=== PATIENT | male | born 1985 | race Caucasian/White ===

== ENCOUNTER 2017-05-23 10:53 | Emergency (ER) | payer OTHER ==
[2017-05-23] MEDS ORDERED: KETOROLAC 30 MG/ML 1 ML VIAL IVP STA (11:37)
[2017-05-23] MEDS ORDERED: MORPHINE SULFATE 4 MG/ML SYRINGE IVP STA (11:37)
--- NOTE | 2017-05-23 11:47 | ED ---
General Adult HPI - General Chief complaint: Extremity Problem,Nontraumatic Stated complaint: Back Pain Source: patient Mode of arrival: ambulatory Limitations: no limitations - History of Present Illness Initial comments: 32-year-old male without past medical history presented for evaluation of left-sided neck pain with radiation down to his scapula. He states that he has been having this pain since October after fall but hasn't followed up with a neurologist. His primary care physician given Flexeril which had improved his pain but he has since run out of his medications. He states that there is no worsening pain with movement of his upper extremities however with left sidebending and left-sided rotation he gets acute pain that goes from the base of the skull down the neck to the left shoulder and upper back. Pain started to acutely worsening yesterday and was unbearable today. He has not had any previous imaging to the area. He denies any changes in vision, ataxia, lightheadedness/dizziness, dysarthria, chest pain, shortness of breath, upper or lower extremity weakness. - Related Data Home Medications Medication Instructions Recorded Confirmed Albuterol Sulfate [Proair Hfa] 2 puff INHALATION RT-Q6H PRN 05/23/17 05/23/17 Cyclobenzaprine [Flexeril] 10 mg PO TID PRN 05/23/17 05/23/17 Dulera (Unknown Dose) 2 puff INHALATION RT-BID 05/23/17 05/23/17 Ibuprofen [Motrin] 800 mg PO TID PRN 05/23/17 05/23/17 Previous Rx's Medication Instructions Recorded Acetaminophen-Codeine 300-30mg 1 tab PO Q6H #12 tablet 05/23/17 [Tylenol #3] Diazepam [Valium] 5 mg PO BID #6 tab 05/23/17 Allergies Allergy/AdvReac Type Severity Reaction Status Date / Time No Known Allergies Allergy Verified 05/23/17 11:13 Review of Systems ROS Statement: Those systems with pertinent positive or pertinent negative responses have been documented in the HPI. ROS Other: All systems not noted in ROS Statement are negative. Constitutional: Denies: fever, chills Eyes: Denies: eye pain, vision change ENT: Denies: ear pain, hearing loss, congestion Respiratory: Denies: cough, dyspnea Cardiovascular: Denies: chest pain, syncope Endocrine: Denies: fatigue, polydipsia, polyuria Gastrointestinal: Denies: abdominal pain, nausea, vomiting Genitourinary: Denies: urgency, dysuria Musculoskeletal: Denies: back pain, arthralgia, myalgia Skin: Denies: rash, lesions Neurological: Reports: other (shooting pain from the left base of skull down neck to upper left back). Denies: headache, weakness Psychiatric: Denies: anxiety, depression Hematological/Lymphatic: Denies: easy bleeding, easy bruising Past Medical History Past Medical History: Asthma History of Any Multi-Drug Resistant Organisms: None Reported Past Surgical History: Orthopedic Surgery Additional Past Surgical History / Comment(s): knee Past Psychological History: Anxiety Smoking Status: Never smoker Past Alcohol Use History: Occasional Past Drug Use History: None Reported General Exam Limitations: no limitations General appearance: alert, in distress, other (intermittent wincing with movements) Eye exam: Present: normal appearance, PERRL, EOMI. Absent: scleral icterus, conjunctival injection, periorbital swelling ENT exam: Present: normal exam, mucous membranes moist Neck exam: Present: other (decreased ROM). Absent: tenderness, full ROM Respiratory exam: Present: normal lung sounds bilaterally. Absent: respiratory distress, wheezes, rales, rhonchi, stridor Cardiovascular Exam: Present: regular rate, normal rhythm, normal heart sounds. Absent: systolic murmur, diastolic murmur, rubs, gallop, clicks GI/Abdominal exam: Present: soft, normal bowel sounds. Absent: distended, tenderness, guarding, rebound, rigid Rectal exam: Present: deferred Extremities exam: Present: normal inspection, full ROM, normal capillary refill. Absent: tenderness, pedal edema, joint swelling, calf tenderness Back exam: Present: normal inspection Neurological exam: Present: alert, oriented X3, CN II-XII intact, other ( positive spurlings test on the left) Psychiatric exam: Present: normal affect, normal mood Skin exam: Present: warm, dry, intact, normal color. Absent: rash Course Vital Signs 05/23/17 05/23/17 10:58 13:16 Temperature 97.3 F L 98.1 F Pulse Rate 93 73 Respiratory 18 16 Rate Blood Pressure 131/103 137/85 O2 Sat by Pulse 98 98 Oximetry Medical Decision Making - Medical Decision Making 32-year-old male presenting for evaluation of left-sided neck pain with radiation of left upper back. On physical examination he has a positive Spurling's test. CT cervical spine shows no acute fracture dislocation however there is a small posterior disc osteophyte complex at C5 and C6. Evaluation for disc herniation is limited with computed tomography scan and MRI is recommended. On repeat evaluation the patient had improvement in his symptoms. He was informed of results and that he be discharged with instructions to follow-up with his primary care physician as well as neuro/ortho. He was given return instructions. The patient acknowledged an understanding of this information and agreed with this plan of care. Disposition Clinical Impression: Cervical radiculopathy Disposition: HOME SELF-CARE Condition: Stable Instructions: Cervical Radiculopathy (ED), Neck Pain (ED), Acute Neck Pain (ED) Additional Instructions: Please use medication as discussed. Please follow up with family doctor if symptoms have not improved over the next two days. Please return to the emergency room if your symptoms increase or worsen or for any other concerns. Prescriptions: Acetaminophen-Codeine 300-30mg [Tylenol #3] 1 tab PO Q6H #12 tablet Diazepam [Valium] 5 mg PO BID #6 tab Referrals: Trent Price MD [Primary Care Provider] - 1-2 days Ana Roger MD [STAFF PHYSICIAN] - 1-2 days Time of Disposition: 13:09
--- NOTE | 2017-05-23 12:14 | CT ---
EXAMINATION TYPE: CT cervical spine wo con DATE OF EXAM: 05/23/2017 COMPARISON: NONE HISTORY: pain following fall [address] DLP: 838 mGycm. Automated Exposure Control for Dose Reduction was Utilized. TECHNIQUE: CT scan of the cervical spine is obtained without contrast, axial images are obtained, sa gittal and coronal reformatted images are also reviewed. FINDINGS: Cervical spine is visualized in its entirety from C1 through upper thoracic levels, demonst rates satisfactory alignment without evidence of acute fracture or dislocation. Prevertebral soft ti ssue appears within normal limits. The C1-C2 articulation is within normal limits on the coronal luis angel ges. Small posterior disc osteophyte complexes seen at C5-C6. There is straightening of the usual cer vical lordosis, which may be related to muscular strain or patient positioning. Motion artifact is se en in the inferior images. There is limited evaluation for disc herniation on CT. Review of axial images shows no significant spinal canal stenosis. Thyroid gland is normal limits. Vi sualized lung apices are clear. IMPRESSION: There is no acute fracture or dislocation evident in the cervical spine. Small posterior disc osteophyte complex at C5-C6. Evaluation for disc herniation is limited.
[2017-05-23 13:16] VITALS: BP 137/85; PULSE 73; RESP 16; TEMP 98.1
== END 2017-05-23 13:20 | disposition home or self-care (01) ==
LOC: EC 10:53
DX: M54.12 Radiculopathy, cervical region (principal); M54.6 Pain in thoracic spine; J45.909 Unspecified asthma, uncomplicated; Z79.51 Long term (current) use of inhaled steroids
CPT/HCPCS: 72125; 99284; 96374; 96375; J2270; J1885

== ENCOUNTER 2020-03-02 06:21 | Inpatient (IN) | payer OTHER ==
[2020-03-02] MEDS ORDERED: ASPIRIN 81 MG PO STA (06:34)
[2020-03-02] MEDS ORDERED: SODIUM CHLORIDE 0.9% 500 ML 500 ML IV STA (06:34)
[2020-03-02] MEDS ORDERED: DILTIAZEM DRIP BOLUS FROM BAG 1 MG SOLN IV ONE (06:35)
[2020-03-02] MEDS: DILTIAZEM 125 MG in SODIUM CHLORIDE 0.9% 100 ML IV SCH (06:41)
[2020-03-02 06:51] LABS: Basophils % (A) 0 %; Eosinophils # (A) 0.1 k/uL (0-0.7); Eosinophils % (A) 2 %; HCT 47.2 % (39.0-53.0); HGB 15.5 gm/dL (13.0-17.5); Lymphocytes # (A) 1.5 k/uL (1.0-4.8); Lymphocytes % (A) 23 %; MCH 31.4 pg (25.0-35.0); MCHC 32.8 g/dL (31.0-37.0); MCV 95.9 fL (80.0-100.0); Mean Platelet Volume 7.2; Monocytes # (A) 0.9 k/uL (0-1.0); Monocytes % (A) 14 %; Neutrophils # (A) 3.7 k/uL (1.3-7.7); Neutrophils % (A) 57 %; Platelet Count 372 k/uL (150-450); RBC 4.92 m/uL (4.30-5.90); RDW 12.6 % (11.5-15.5); WBC 6.4 k/uL (3.8-10.6)
[2020-03-02 06:59] LABS: ALT 92 U/L (4-49); AST 77 U/L (17-59); African American GFR (CKD) >90 (>60 ml/min/1.73 sqM); Alkaline Phosphatase 89 U/L (38-126); Anion Gap 15 mmol/L; Blood Urea Nitrogen 10 mg/dL (9-20); Calcium 10.1 mg/dL (8.4-10.2); Carbon Dioxide 20 mmol/L (22-30); Chloride 99 mmol/L (98-107); Glucose 118 mg/dL (74-99); Magnesium 1.8 mg/dL (1.6-2.3); Non-African American GFR(CKD) >90 (>60 ml/min/1.73 sqM); Potassium 3.7 mmol/L (3.5-5.1); Sodium 134 mmol/L (137-145); Total Bilirubin 2.2 mg/dL (0.2-1.3)
--- NOTE | 2020-03-02 07:00 | ED ---
Arrhythmia/Palpitations HPI - General Chief Complaint: Arrhythmia/Palpitations Stated Complaint: cardiac issues Time Seen by Provider: 03/02/20 06:30 Source: patient, RN notes reviewed Mode of arrival: ambulatory Limitations: no limitations - History of Present Illness Initial Comments: This a 34-year-old male presents emergency Department chief complaint palpitations, A. fib. Patient does have a history of A. fib states she's not had a problem in several years does not take any current medications. Patient states he is to be on Rythmol. Patient states that he just feels that his heart is racing no exact chest pain. He's had minimal shortness of breath and slight dizziness. Denies any fever, chills, URI symptoms, nausea vomiting. Patient s tates that he uses see [facility]. - Related Data Home Medications Medication Instructions Recorded Confirmed Albuterol Sulfate [Proair Hfa] 2 puff INHALATION RT-Q6H PRN 05/23/17 05/23/17 Cyclobenzaprine [Flexeril] 10 mg PO TID PRN 05/23/17 05/23/17 Dulera (Unknown Dose) 2 puff INHALATION RT-BID 05/23/17 05/23/17 Ibuprofen [Motrin] 800 mg PO TID PRN 05/23/17 05/23/17 Previous Rx's Medication Instructions Recorded Acetaminophen-Codeine 300-30mg 1 tab PO Q6H #12 tablet 05/23/17 [Tylenol #3] Diazepam [Valium] 5 mg PO BID #6 tab 05/23/17 Allergies Allergy/AdvReac Type Severity Reaction Status Date / Time No Known Allergies Allergy Verified 03/02/20 06:27 Review of Systems ROS Statement: Those systems with pertinent positive or pertinent negative responses have been documented in the HPI. ROS Other: All systems not noted in ROS Statement are negative. Past Medical History Past Medical History: Atrial Fibrillation, Asthma History of Any Multi-Drug Resistant Organisms: None Reported Past Surgical History: Orthopedic Surgery Additional Past Surgical History / Comment(s): knee Past Psychological History: Anxiety Smoking Status: Never smoker Past Alcohol Use History: Occasional Past Drug Use History: None Reported General Exam Limitations: no limitations General appearance: alert, in no apparent distress Head exam: Present: atraumatic, normocephalic, normal inspection Eye exam: Present: normal appearance, PERRL, EOMI. Absent: scleral icterus, conjunctival injection, periorbital swelling ENT exam: Present: normal exam, normal oropharynx, mucous membranes moist Neck exam: Present: normal inspection, full ROM. Absent: tenderness, meningismus, lymphadenopathy Respiratory exam: Present: normal lung sounds bilaterally. Absent: respiratory distress, wheezes, rales, rhonchi, stridor Cardiovascular Exam: Present: tachycardia, irregular rhythm, normal heart sounds. Absent: regular rate, normal rhythm, systolic murmur, diastolic murmur, rubs, gallop, clicks GI/Abdominal exam: Present: soft, normal bowel sounds. Absent: distended, tenderness, guarding, rebound, rigid Extremities exam: Absent: pedal edema Neurological exam: Present: alert, oriented X3, CN II-XII intact Skin exam: Present: warm, dry, intact, normal color. 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 fib with RVR rate of 151 QRS 86 QT/QTC 304/481 Medical Decision Making - Medical Decision Making Patient will be admitted for A. fib RVR started on Cardizem and heparin with cardiology evaluation. - Lab Data Result diagrams: 03/02/20 06:36 03/02/20 06:36 Lab Results 03/02/20 03/02/20 03/02/20 Range/Units 06:36 06:36 06:36 WBC 6.4 (3.8-10.6) k/uL RBC 4.92 (4.30-5.90) m/uL Hgb 15.5 (13.0-17.5) gm/dL Hct 47.2 (39.0-53.0) % MCV 95.9 (80.0-100.0) fL MCH 31.4 (25.0-35.0) pg MCHC 32.8 (31.0-37.0) g/dL RDW 12.6 (11.5-15.5) % Plt Count 372 (150-450) k/uL Neutrophils % 57 % Lymphocytes % 23 % Monocytes % 14 % Eosinophils % 2 % Basophils % 0 % Neutrophils # 3.7 (1.3-7.7) k/uL Lymphocytes # 1.5 (1.0-4.8) k/uL Monocytes # 0.9 (0-1.0) k/uL Eosinophils # 0.1 (0-0.7) k/uL Basophils # 0.0 (0-0.2) k/uL PT 10.2 (9.0-12.0) sec INR 1.0 (<1.2) APTT 24.6 (22.0-30.0) sec Sodium 134 L (137-145) mmol/L Potassium 3.7 (3.5-5.1) mmol/L Chloride 99 (98-107) mmol/L Carbon Dioxide 20 L (22-30) mmol/L Anion Gap 15 mmol/L BUN 10 (9-20) mg/dL Creatinine 0.83 (0.66-1.25) mg/dL Est GFR (CKD-EPI)AfAm >90 (>60 ml/min/1.73 sqM) Est GFR (CKD-EPI)NonAf >90 (>60 ml/min/1.73 sqM) Glucose 118 H (74-99) mg/dL Calcium 10.1 (8.4-10.2) mg/dL Magnesium 1.8 (1.6-2.3) mg/dL Total Bilirubin 2.2 H (0.2-1.3) mg/dL AST 77 H (17-59) U/L ALT 92 H (4-49) U/L Alkaline Phosphatase 89 (38-126) U/L Troponin I (0.000-0.034) ng/mL Total Protein 8.0 (6.3-8.2) g/dL Albumin 5.0 (3.5-5.0) g/dL TSH 4.400 (0.465-4.680) mIU/L 03/02/20 Range/Units 06:36 WBC (3.8-10.6) k/uL RBC (4.30-5.90) m/uL Hgb (13.0-17.5) gm/dL Hct (39.0-53.0) % MCV (80.0-100.0) fL MCH (25.0-35.0) pg MCHC (31.0-37.0) g/dL RDW (11.5-15.5) % Plt Count (150-450) k/uL Neutrophils % % Lymphocytes % % Monocytes % % Eosinophils % % Basophils % % Neutrophils # (1.3-7.7) k/uL Lymphocytes # (1.0-4.8) k/uL Monocytes # (0-1.0) k/uL Eosinophils # (0-0.7) k/uL Basophils # (0-0.2) k/uL PT (9.0-12.0) sec INR (<1.2) APTT (22.0-30.0) sec Sodium (137-145) mmol/L Potassium (3.5-5.1) mmol/L Chloride (98-107) mmol/L Carbon Dioxide (22-30) mmol/L Anion Gap mmol/L BUN (9-20) mg/dL Creatinine (0.66-1.25) mg/dL Est GFR (CKD-EPI)AfAm (>60 ml/min/1.73 sqM) Est GFR (CKD-EPI)NonAf (>60 ml/min/1.73 sqM) Glucose (74-99) mg/dL Calcium (8.4-10.2) mg/dL Magnesium (1.6-2.3) mg/dL Total Bilirubin (0.2-1.3) mg/dL AST (17-59) U/L ALT (4-49) U/L Alkaline Phosphatase (38-126) U/L Troponin I <0.012 (0.000-0.034) ng/mL Total Protein (6.3-8.2) g/dL Albumin (3.5-5.0) g/dL TSH (0.465-4.680) mIU/L Critical Care Time Critical Care Time: Yes Total Critical Care Time: 35 Critical Care Time: Total 35 minutes critical care time used initially evaluated patient, reviewed all past medical history ordered labs EKG and chest x-ray. Patient was started on Cardizem bolus of 10 started at 5 mg per hour. Patient heart rate is improved at this time. Patient remains in A. fib. Case discussed with mo physician will be admitted to cardiology evaluation. Patient was started on heparin. Disposition Clinical Impression: Atrial fibrillation with RVR Disposition: ADMITTED IP TO THIS HOSP Condition: Fair Referrals: Trent Price MD [Primary Care Provider] - 1-2 days
--- NOTE | 2020-03-02 07:02 | XR ---
EXAMINATION TYPE: XR chest 2V DATE OF EXAM: 03/02/2020 COMPARISON: 03/15/2011 HISTORY: Dysrhythmia TECHNIQUE: FINDINGS: Heart and mediastinum are normal. Lungs are clear. Diaphragm is normal. There are chest shahriar ds. Bony thorax appears intact. Pulmonary vascularity is normal. IMPRESSION: Normal chest. No change.
[2020-03-02 07:27] LABS: Partial Thromboplastin Time 24.6 sec (22.0-30.0); Prothrombin Time 10.2 sec (9.0-12.0)
[2020-03-02] MEDS ORDERED: HEPARIN SODIUM,PORCINE 5,000 UNIT/ML 1 ML VIAL IV ONE (07:29)
[2020-03-02] MEDS ORDERED: HEPARIN SODIUM,PORCINE 5,000 UNIT/ML 1 ML VIAL IV PRN (07:29)
[2020-03-02] MEDS ORDERED: HEPARIN SOD,PORK IN 0.45% NACL 25,000 UNIT in 0.45% NACL 1 250ML.BAG IV SCH (07:30)
[2020-03-02] MEDS ORDERED: ACETAMINOPHEN TAB 325 MG TAB PO PRN (07:33)
[2020-03-02] MEDS ORDERED: PROPAFENONE 150 MG TAB PO STA (09:57)
--- NOTE | 2020-03-02 10:21 | P.CRDCN ---
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 Family history is significant for CAD with his father having MO in his 50s. He does have a history of drinking which he brings about 3-4 days a week usually however he's this has become more frequent and drinking earlier in the day since being for load about 8 weeks ago his last drink was February 28 which he admits to drinking about a pint of tequila. He presented to the emergency department after developing palpitations last night he did take 300 mg of Rythmol at home but this was in 2016. Palpitations persisted so he came to the emergency department. EKG on admission showed atrial fibrillation with rapid ventricular response with a ventricular rate of 151 bpm. chest x-ray on admission showed normal chest, no change. Labs on admission showed normal CBC, sodium 134, potassium 3.7, BUN 10 and creatinine 0.83. LFTs are elevated with AST 77, ALT 92, and total bilirubin 2.2. Patient denies history of hypertension but blood pressure has been elevated since admission. TSH is normal. He continues to be in atrial fibrillation with heart rate around 100 bpm. He continues to feel fluttering in his chest. Denies shortness of breath, chest pain, syncope or edema. He does have occasional dizziness with exertion. Past Medical History Past Medical History: Atrial Fibrillation, Asthma History of Any Multi-Drug Resistant Organisms: None Reported Past Surgical History: Orthopedic Surgery Additional Past Surgical History / Comment(s): knee Past Psychological History: Anxiety Smoking Status: Never smoker Past Alcohol Use History: Occasional Past Drug Use History: None Reported Medications and Allergies Home Medications Medication Instructions Recorded Confirmed Type Albuterol Sulfate [Proair Hfa] 2 puff INHALATION RT-Q4H PRN 05/23/17 03/02/20 History LORazepam [Ativan] 0.5 mg PO DAILY PRN 03/02/20 03/02/20 History Mometasone/Formoterol [Dulera 200 2 puff INHALATION RT-BID 03/02/20 03/02/20 History Mcg/5 Mcg Inhaler] Allergies Allergy/AdvReac Type Severity Reaction Status Date / Time No Known Allergies Allergy Verified 03/02/20 08:19 Physical Exam Vitals: Vital Signs Temp Pulse Pulse Resp BP Pulse Ox 03/02/20 08:47 861 H 6 L 126/87 98 03/02/20 08:24 86 16 116/103 99 03/02/20 08:16 102 H 16 147/118 98 03/02/20 07:48 105 H 16 148/126 100 03/02/20 07:20 106 H 16 139/111 99 03/02/20 07:04 120 H 20 143/111 98 03/02/20 06:51 110 H 20 150/107 98 03/02/20 06:33 158 H 160 H 03/02/20 06:25 98.8 F 62 18 139/108 98 Intake and Output 03/01/20 03/02/20 03/02/20 22:59 06:59 14:59 Intake Total 15.500 Balance 15.500 Intake: Intake, IV Titration 15.500 Amount Diltiazem 125 mg In 15.500 Sodium Chloride 0.9% 100 ml @ 5 MG/HR 5 mls/hr IV .Q24H [facility] Rx#:[id number] Other: Weight 83.915 kg PHYSICAL EXAMINATION: HEENT: Head is atraumatic, normocephalic. Pupils equal, round. Neck is supple. There is no elevated jugular venous pressure. HEART EXAMINATION: Heart sounds irregularly irregular, S1 and S2 normal. No murmur or gallop heard. CHEST EXAMINATION: Lungs are clear to auscultation and precussion. No chest wall tenderness is noted on palpation or with deep breathing. ABDOMEN: Soft, nontender. Bowel sounds are heard. No organomegaly noted. EXTREMITIES: 2+ peripheral pulses with no evidence of peripheral edema and no calf tenderness noted. NEUROLOGIC patient is awake, alert and oriented x3. . Results 03/02/20 06:36 03/02/20 06:36 Cardiac Enzymes 03/02/20 03/02/20 Range/Units 06:36 06:36 AST 77 H (17-59) U/L Troponin I <0.012 (0.000-0.034) ng/mL Coagulation 03/02/20 Range/Units 06:36 PT 10.2 (9.0-12.0) sec APTT 24.6 (22.0-30.0) sec CBC 03/02/20 Range/Units 06:36 WBC 6.4 (3.8-10.6) k/uL RBC 4.92 (4.30-5.90) m/uL Hgb 15.5 (13.0-17.5) gm/dL Hct 47.2 (39.0-53.0) % Plt Count 372 (150-450) k/uL Comprehensive Metabolic Panel 03/02/20 Range/Units 06:36 Sodium 134 L (137-145) mmol/L Potassium 3.7 (3.5-5.1) mmol/L Chloride 99 (98-107) mmol/L Carbon Dioxide 20 L (22-30) mmol/L BUN 10 (9-20) mg/dL Creatinine 0.83 (0.66-1.25) mg/dL Glucose 118 H (74-99) mg/dL Calcium 10.1 (8.4-10.2) mg/dL AST 77 H (17-59) U/L ALT 92 H (4-49) U/L Alkaline Phosphatase 89 (38-126) U/L Total Protein 8.0 (6.3-8.2) g/dL Albumin 5.0 (3.5-5.0) g/dL Current Medications Generic Name Dose Route Start Last Admin Trade Name Freq PRN Reason Stop Dose Admin Acetaminophen 650 mg 03/02/20 07:33 Tylenol Tab PO Q6HR PRN Mild Pain or Fever > 100.5 Apixaban 5 mg 03/02/20 10:00 Eliquis PO BID ADRIEN Diltiazem HCl 125 mg/ Sodium 125 mls @ 5 mls/hr 03/02/20 06:45 03/02/20 08:24 Chloride IV 5 mg/hr .Q24H ADRIEN 5 mls/hr Infusion 5 MG/HR Metoprolol Tartrate 25 mg 03/02/20 10:00 Lopressor PO BID ADRIEN Intake and Output 03/01/20 03/02/20 03/02/20 22:59 06:59 14:59 Intake Total 15.500 Balance 15.500 Intake: Intake, IV Titration 15.500 Amount Diltiazem 125 mg In 15.500 Sodium Chloride 0.9% 100 ml @ 5 MG/HR 5 mls/hr IV .Q24H [facility] Rx#:[id number] Other: Weight 83.915 kg 03/02/20 06:36 03/02/20 06:36 EKG Interpretations (text) Atrial fibrillation with rapid ventricular response Assessment and Plan Assessment: #1 atrial fibrillation with rapid ventricular response, paroxysmal #2 elevated blood pressure with no diagnosis of hypertension in the past #3 asthma #4 prior history of smoking #5 alcohol abuse Plan: From cardiology's perspective, we will obtain a 2-D echo with Doppler. We will stop heparin and start the patient on Eliquis. Adequate beta sunita. Give Rythmol 600 mg by mouth 1 now. I discussed with the patient the importance of alcohol cessation. Patient would benefit from stress test at a later date as an outpatient to rule out underlying ischemia. We'll continue to follow the patient by and provide further recommendations accordingly. CLINICAL OB note has been reviewed, I agree with a documented findings and plan of care. Patient was seen and examined.
[2020-03-02] MEDS: APIXABAN 5 MG TAB PO SCH ×2 (10:39→20:07)
[2020-03-02] MEDS: METOPROLOL TARTRATE 25 MG TAB PO SCH ×2 (10:39→20:07)
[2020-03-02] MEDS ORDERED: LORazepam 0.5 MG TAB PO PRN (14:00)
[2020-03-02] MEDS ORDERED: ALBUTEROL NEBULIZED 2.5 MG/3 ML INHALATION PRN (14:13)
--- NOTE | 2020-03-02 14:16 | P.HPIM ---
History of Present Illness H&P Date: 03/02/20 Chief Complaint: Palpitations 34-year-old male with a past medical history of asthma, HTN, former smoker, and A. fib presents with increased palpitations. Patient has a known history of atrial fibrillation and is on Rythmol when necessary. Patient took a dose of the Rythmol and symptoms did not improve as a result he went to the ER. Patient was found to be in A. fib with RVR. 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 Patient does admit to moderate alcohol consumption. Patient admitted to drinking 3-4 times a week. However, patient states that with these trying times he has increased his alcohol intake. Patient has been off work for 8 weeks. Patient admitted to me that his last drink was on Tuesday, however, there is some misinformation and he is stating that his last drink was on Tuesday per cardiology note. As a result patient will be placed on ciwa protocol. Patient currently denies chest pain, shortness of breath, nausea, vomiting, fevers, chills. Laboratory data did reveal sodium of 134 potassium 3.7 carbon dioxide 20 chloride 99 glucose 118 total bili 2.2 AST 77 ALT 92 troponin less than 0.012 TSH 4.4 Chest x-ray revealed no acute pathology EKG revealed A. fib with RVR as a result patient was placed on a Cardizem drip and heparin drip Vitals temperature 98.2F orally heart rate 71 and irregular respiratory rate 13 blood pressure 118/98 oxygen saturation 95% on room air Alcohol cessation was counseled Review of Systems A 12 point review of systems was assessed patient was only positive for those pertinent in HPI Past Medical History Past Medical History: Atrial Fibrillation, Asthma, Hypertension History of Any Multi-Drug Resistant Organisms: None Reported Past Surgical History: Orthopedic Surgery Additional Past Surgical History / Comment(s): knee Past Psychological History: Anxiety Smoking Status: Never smoker Past Alcohol Use History: Occasional Past Drug Use History: None Reported Medications and Allergies Home Medications Medication Instructions Recorded Confirmed Type Albuterol Sulfate [Proair Hfa] 2 puff INHALATION RT-Q4H PRN 05/23/17 03/02/20 History LORazepam [Ativan] 0.5 mg PO DAILY PRN 03/02/20 03/02/20 History Mometasone/Formoterol [Dulera 200 2 puff INHALATION RT-BID 03/02/20 03/02/20 History Mcg/5 Mcg Inhaler] Allergies Allergy/AdvReac Type Severity Reaction Status Date / Time No Known Allergies Allergy Verified 03/02/20 08:19 Physical Exam Osteopathic Statement: *. No significant issues noted on an osteopathic structural exam other than those noted in the History and Physical/Consult. Vitals: Vital Signs Temp Pulse Pulse Resp BP Pulse Ox 03/02/20 12:20 98.2 F 71 13 118/98 95 03/02/20 10:29 98.2 F 03/02/20 08:47 861 H 6 L 126/87 98 03/02/20 08:24 86 16 116/103 99 03/02/20 08:16 102 H 16 147/118 98 03/02/20 07:48 105 H 16 148/126 100 03/02/20 07:20 106 H 16 139/111 99 03/02/20 07:04 120 H 20 143/111 98 03/02/20 06:51 110 H 20 150/107 98 03/02/20 06:33 158 H 160 H 03/02/20 06:25 98.8 F 62 18 139/108 98 Intake and Output 03/01/20 03/02/20 03/02/20 22:59 06:59 14:59 Intake Total 42.167 Output Total 0 Balance 42.167 Intake: Intake, IV Titration 42.167 Amount Diltiazem 125 mg In 42.167 Sodium Chloride 0.9% 100 ml @ 5 MG/HR 5 mls/hr IV .Q24H [facility] Rx#:[id number] Output: Urine 0 Other: Voiding Method Toilet Weight 83.915 kg 83.915 kg General: [non toxic], [no distress], [appears at stated age] Derm: [warm], [dry] Head: [atraumatic], [normocephalic], [symmetric] Eyes: [EOMI], [no lid lag], [anicteric sclera] Mouth: [no lip lesion], [mucus membranes moist] Cardiovascular: [irreg], [no murmur], [positive posterior tibial pulse bilateral], Lungs: [CTA bilateral], [no rhonchi, no rales] , [no accessory muscle use] Abdominal: [soft], [ nontender to palpation], [no guarding], [no appreciable organomegaly] Ext: [no gross muscle atrophy], [no edema], [no contractures] Neuro: [ CN II-XI grossly intact], [no focal neuro deficits] Psych: [Alert], [oriented], [appropriate affect] Results CBC & Chem 7: 03/02/20 06:36 03/02/20 06:36 Labs: Abnormal Lab Results - Last 24 Hours (Table) 03/02/20 Range/Units 06:36 Sodium 134 L (137-145) mmol/L Carbon Dioxide 20 L (22-30) mmol/L Glucose 118 H (74-99) mg/dL Total Bilirubin 2.2 H (0.2-1.3) mg/dL AST 77 H (17-59) U/L ALT 92 H (4-49) U/L Thrombosis Risk Factor Assmnt - DVT/VTE Prophylaxis DVT/VTE Prophylaxis: Pharmacologic Prophylaxis ordered - Choose All That Apply Any of the Below Risk Factors Present?: Yes Each Factor Represents 1 point: Obesity (BMI >25) Other Risk Factors: No Other congenital or acquired thrombophilia - If yes, enter type in comment: No Thrombosis Risk Factor Assessment Total Risk Factor Score: 1 Thrombosis Risk Factor Assessment Level: Low Risk Assessment and Plan Assessment: Palpitations secondary to atrial fibrillation with rapid ventricular response, paroxysmal -IV heparin and IV Cardizem drip initiated patient transitioned to oral therapy, eliquis and metoprolol, by cardiology -Cardiology recommendations appreciated -Echo ordered Paroxysmal A. fib likely secondary to alcohol abuse -Alcohol cessation counseled -[facility] protocol initiated Hypertension -Metoprolol twice a day Asthma -Duo nebs prn GI DVT prophylaxis A.m. labs Greater than 30 minutes spent coordinating care and counseling patient Time with Patient: Greater than 30
[2020-03-02] MEDS: PANTOPRAZOLE 40 MG TABLET PO SCH (14:22)
[2020-03-02] MEDS: SYMBICORT 160-4.5 MCG INHALER INHALATION SCH (18:35)
[2020-03-03 04:53] LABS: African American GFR (CKD) >90 (>60 ml/min/1.73 sqM); Anion Gap 12 mmol/L; Blood Urea Nitrogen 10 mg/dL (9-20); Calcium 9.9 mg/dL (8.4-10.2); Carbon Dioxide 24 mmol/L (22-30); Chloride 100 mmol/L (98-107); Glucose 106 mg/dL (74-99); Non-African American GFR(CKD) >90 (>60 ml/min/1.73 sqM); Sodium 136 mmol/L (137-145)
[2020-03-03] MEDS ORDERED: THIAMINE 100 MG TAB PO SCH (07:44)
[2020-03-03] MEDS ORDERED: LORazepam 2 MG/ML INJ IV PRN ×3 (07:44)
[2020-03-03] MEDS: SYMBICORT 160-4.5 MCG INHALER INHALATION SCH ×2 (08:35→18:39)
[2020-03-03] MEDS ORDERED: FOLIC ACID 1 MG TAB PO SCH (09:00)
[2020-03-03] MEDS ORDERED: MULTIVITAMINS, THERA 1 EACH TAB PO SCH (09:00)
[2020-03-03] MEDS: DILTIAZEM 125 MG in SODIUM CHLORIDE 0.9% 100 ML IV SCH (09:10)
[2020-03-03] MEDS: PANTOPRAZOLE 40 MG TABLET PO SCH (09:18)
[2020-03-03] MEDS: METOPROLOL TARTRATE 25 MG TAB PO SCH (09:18)
[2020-03-03] MEDS: APIXABAN 5 MG TAB PO SCH (09:19)
--- NOTE | 2020-03-03 11:44 | ECHOF ---
Referral Reason:atrial fibrillation MEASUREMENTS -------- HEIGHT: 180.3 cm WEIGHT: 85.7 kg BP: 134/99 RVIDd: 2.7 cm (< 3.3) IVSd: 1.5 cm (0.6 - 1.1) LVIDd: 3.4 cm (3.9 - 5.3) LVPWd: 1.3 cm (0.6 - 1.1) IVSs: 2.1 cm LVIDs: 2.5 cm LVPWs: 1.4 cm LAESV Index (A-L): 19.34 ml/m Ao Diam: 3.1 cm (2.0 - 3.7) AV Cusp: 2.2 cm (1.5 - 2.6) LA Diam: 3.5 cm (2.7 - 3.8) MV EXCURSION: 14.230 mm (> 18.000) MV EF SLOPE: 93 mm/s (70 - 150) EPSS: 0.7 cm MV E Reginald: 0.68 m/s MV DecT: 190 ms MV A Reginald: 0.58 m/s MV E/A Ratio: 1.17 RAP: 5.00 mmHg RVSP: 15.39 mmHg TAPSE: 20.13 mm FINDINGS -------- Sinus rhythm. This was a technically good study. The left ventricular size is normal. There is mild concentric left ventricular hypertrophy. Overa ll left ventricular systolic function is normal with, an EF between 55 - 60 %. The diastolic fillin g pattern is normal for the age of the patient 8.21. The right ventricle is normal in size. The right ventricular systolic function is normal. The left atrial size is normal. Normal LA size by volume 22+/-6 ml/m2. The right atrial size is normal. The aortic valve is trileaflet and appears structurally normal. The mitral valve is normal. Mild mitral regurgitation is present. The tricuspid valve appears structurally normal. Mild tricuspid regurgitation present. Right vent ricular systolic pressure is normal at < 35 mmHg. There is no pulmonic regurgitation present. The aortic root size is normal. Normal inferior vena cava with normal inspiratory collapse consistent with estimated right atrial pre ssure of 5 mmHg. There is no pericardial effusion. CONCLUSIONS -------- 1. Sinus rhythm. 2. This was a technically good study. 3. The left ventricular size is normal. 4. There is mild concentric left ventricular hypertrophy. 5. Overall left ventricular systolic function is normal with, an EF between 55 - 60 %. 6. The diastolic filling pattern is normal for the age of the patient 8.21 7. The right ventricle is normal in size. 8. The right ventricular systolic function is normal. 9. The left atrial size is normal. 10. Normal LA size by volume 22+/-6 ml/m2. 11. The right atrial size is normal. 12. The aortic valve is trileaflet and appears structurally normal. 13. The mitral valve is normal. 14. Mild mitral regurgitation is present. 15. The tricuspid valve appears structurally normal. 16. Mild tricuspid regurgitation present. 17. Right ventricular systolic pressure is normal at < 35 mmHg. 18. There is no pulmonic regurgitation present. 19. The aortic root size is normal. 20. Normal inferior vena cava with normal inspiratory collapse consistent with estimated right atrial pressure of 5 mmHg. 21. There is no pericardial effusion. RESTAURANT MGR: Yessenia Campo RDCS
[2020-03-03 12:21] VITALS: PULSE 74; RESP 12
[2020-03-03 12:29] VITALS: BP 149/103; TEMP 98.4
--- NOTE | 2020-03-03 14:02 | P.DS ---
Providers Date of admission: 03/02/20 07:34 Expected date of discharge: 03/03/20 Attending physician: Fatmata Montes DO Consults: 03/02/20 07:34 Consult Physician Urgent Consulting Provider: Barrington Plummer Consult Reason/Comments: afib rvr Do you want consulting provider notified?: Yes Primary care physician: Trent Price Hospital Course: Discharge Diagnosis: Paroxysmal A fib with rapid ventricular response on arrival Binge drinking pattern Hypertension Asthma Mild alcoholic hepatitis Hospital Course: Patient is a 34-year-old male to past medical history of asthma, hypertension, and atrial fibrillation who presented to the emergency department with palpitations. In the ER he was found to have atrial fibrillation with rapid ventricular response. He had tried taking dose of Rythmol at home prior to presenting without success. Initial laboratory analysis showed a mildly elevated bilirubin at 2.2, AST 77, ALT 92. His potassium and magnesium were normal. He is admitted and started on a Cardizem drip. His also started on a heparin drip. He was seen by cardiology and transition [place]. He converted to normal sinus rhythm and was taken off of his Cardizem drip and started on metoprolol. He underwent an echocardiogram which showed a preserved ejection fraction of 55-60%, and no significant valvular dysfunction. He was determined stable for discharge home. He will continue with Lopressor 25 mg twice daily, Rythmol as needed, and Eliquis. He'll follow-up with Dr. Trent in 1-[address] Price in 3-5 days. We discussed that he likely could transition from Eliquis to aspirin if okay with cardiology in about 30 days. We also discussed the importance of alcohol cessation and adequate follow-up. We did discuss side effects of metoprolol including fatigue and impotence. Patient seen and examined at bedside. No chest pain, shortness breath, nausea, or vomiting. No additional palpitations. All questions answered. Vital signs reviewed and stable. General: non toxic, no distress, appears at stated age Derm: warm, dry Head: atraumatic, normocephalic, symmetric Eyes: EOMI, no lid lag, anicteric sclera Mouth: no lip lesion, mucus membranes moist Cardiovascular: S1S2 reg, no murmur, positive posterior tibial pulse bilateral, Lungs: CTA bilateral, no rhonchi, no rales , no accessory muscle use Abdominal: soft, nontender to palpation, no guarding, no appreciable organomegaly Ext: no gross muscle atrophy, no edema, no contractures Neuro: CN II-XI grossly intact, no focal neuro deficits Psych: Alert, oriented, appropriate affect A total of 32 minutes of time were spent preparing this complex discharge summary . Patient Condition at Discharge: Stable Plan - Discharge Summary Discharge Rx Participant: Yes New Discharge Prescriptions: New Apixaban [Eliquis] 5 mg PO BID #60 tab Metoprolol Tartrate [Lopressor] 25 mg PO BID #60 tab Continue Albuterol Sulfate [Proair Hfa] 2 puff INHALATION RT-Q4H PRN PRN Reason: Shortness Of Breath Mometasone/Formoterol [Dulera 200 Mcg/5 Mcg Inhaler] 2 puff INHALATION RT-BID LORazepam [Ativan] 0.5 mg PO DAILY PRN PRN Reason: Anxiety Discharge Medication List Albuterol Sulfate [Proair Hfa] 2 puff INHALATION RT-Q4H PRN 05/23/17 [History] LORazepam [Ativan] 0.5 mg PO DAILY PRN 03/02/20 [History] Mometasone/Formoterol [Dulera 200 Mcg/5 Mcg Inhaler] 2 puff INHALATION RT-BID 03/02/20 [History] Apixaban [Eliquis] 5 mg PO BID #60 tab 03/03/20 [Rx] Metoprolol Tartrate [Lopressor] 25 mg PO BID #60 tab 03/03/20 [Rx] Follow up Appointment(s)/Referral(s): Tisha Trent MD [STAFF PHYSICIAN] - 1 Week (Pt stated he will make the appointment ) Trent Price MD [Primary Care Provider] - 1-2 days (Pt stated he will make the appointment ) Patient Instructions/Handouts: A-fib (Atrial Fibrillation) (GEN) Activity/Diet/Wound Care/Special Instructions: Contact CM at ut regarding indigent funds Activity: as tolerated Diet: heart healthy Special Instructions: cut down on alcohol consumption Discharge Disposition: HOME SELF-CARE
--- NOTE | 2020-03-03 15:44 | PN ---
PROGRESS NOTE FOLLOW-UP NOTE: This is a 34-year-old gentleman who was admitted to hospital with an episode of atrial fibrillation with rapid ventricular rate. He carries a history of paroxysmal atrial fibrillation. He converted back to sinus rhythm, and this morning he is in sinus rhythm. He will be discharged home on Lopressor 25 b.i.d., Rythmol on a p.r.n. basis, and Eliquis that he was already on. On exam today, he is comfortable at rest. Vital signs are stable. Blood pressure is elevated. There is no jugular venous distention. Chest exam reveals good air entry bilaterally. Heart exam reveals first and second heart sounds. No gallop. No murmur. Examination of the extremities did not reveal any edema. Peripheral pulses are felt. Labs show that the potassium is 4, creatinine is 0.8, hemoglobin 15.5. Patient is negative for coronavirus. ASSESSMENT: Paroxysmal atrial fibrillation. PLAN: Patient is doing well. He will continue current medications, and if he is stable for discharge follow-up appointment in our office in a week's time. MMODL / IJN: [id number] /
== END 2020-03-03 13:00 | disposition home or self-care (01) | DRG 310 ==
LOC: EC 06:21 → 3SCARD 07:34 → 2SICU 08:34
PROVIDERS: ADMIT Internal Medicine; ATTEND Internal Medicine
DX: I48.0 Paroxysmal atrial fibrillation (principal); F10.10 Alcohol abuse, uncomplicated; F41.9 Anxiety disorder, unspecified; I10 Essential (primary) hypertension; J45.909 Unspecified asthma, uncomplicated; K70.10 Alcoholic hepatitis without ascites; Z11.59 Encounter for screening for other viral diseases; Z79.51 Long term (current) use of inhaled steroids; Z79.899 Other long term (current) drug therapy; Z87.891 Personal history of nicotine dependence; Z71.41 Alcohol abuse counseling and surveillance of alcoholic; Z82.49 Family history of ischemic heart disease and other diseases of the circulatory system
CPT/HCPCS: 36415; 71046; 80048; 80053; 83735; 84443; 84484; 85025; 85610; 85730; 87635; 93005; 93306; 94640; 96365; 96366; 96368; 96376; 99291